=== PATIENT | male | born 1985 | race African-American/Black ===

== ENCOUNTER 2017-12-05 21:44 | Emergency (ER) | payer OTHER ==
[~2017-12-05] VITALS: Ht 170.2 cm; Wt 83.9 kg
[2017-12-05 22:10] VITALS: BP 144/88
--- NOTE | 2017-12-06 01:45 | ED GENERAL ADULT ---
History of Present Illness General Chief Complaint: Upper Respiratory Sx/Fever Stated Complaint: FLU LIKE SYMPTOMS Source: patient Exam Limitations: no limitations Vital Signs & Intake/Output Vital Signs & Intake/Output Vital Signs Date Time Temp Pulse Resp B/P B/P Pulse O2 O2 Flow FiO2 Mean Ox Delivery Rate 12/06 0158 97.6 12/05 2210 97.3 678 16 144/88 99 Room Air ED Intake and Output 12/06 0000 12/05 1200 Intake Total Output Total Balance Patient 185 lb Weight Weight Reported by Patient Measurement Method Allergies Coded Allergies: No Known Allergies (12/05/17) Reconcile Medications Ibuprofen 800 MG TABLET 1 TAB PO TID PRN INFLUENZA Oseltamivir Phosphate (Tamiflu) 75 MG CAPSULE 1 CAP PO BID INFLUENZA Triage Note: PT PRESENTS TO THE ER C/O BODY ACHES, COUGHING YELLOW STUFF UP, TIRED AND FATIGUE AND PT STATES HE HAS A FEVER.. PT DENIES FLU SHOT THIS SEASON. PT STATES HE SELF MEDICATED WITH TYLENOL 2 TABS AT 1800. Triage Nurses Notes Reviewed? yes Onset: Gradual Duration: day(s): Timing: recent history Injury Environment: home Severity: moderate Modifying Factors: Improves With: rest. Associated Symptoms: cough HPI: 32 yo gentleman in prior good health presents with body aches, headache, mild dry cough for the past 3 days. "I just don't feel well... all achy all over." he notes no dyspnea, phlegm, diarrhea, wheezing, chest pain, dizziness. He is otherwise well. Past History Travel History Traveled to [place] past 21 day No Medical History Any Pertinent Medical History? see below for history Surgical History Surgical History: none Psychosocial History What is your primary language Citizen [place] Tobacco Use: Never used Family History Hx Contributory? No Review of Systems Review of Systems Constitutional: Reports: no symptoms. EENTM: Reports: no symptoms. Respiratory: Reports: no symptoms. Cardiovascular: Reports: no symptoms. GI: Reports: no symptoms. Genitourinary: Reports: no symptoms. Musculoskeletal: Reports: no symptoms. Skin: Reports: no symptoms. Neurological/Psychological: Reports: no symptoms. Hematologic/Endocrine: Reports: no symptoms. Immunologic/Allergic: Reports: no symptoms. All Other Systems: Reviewed and Negative Physical Exam Physical Exam General Appearance: well developed/nourished, mild distress Head: atraumatic, normal appearance Eyes: Bilateral: normal appearance. Ears, Nose, Throat: normal pharynx, normal ENT inspection Neck: normal inspection, supple, full range of motion Respiratory: normal breath sounds, chest non-tender, no respiratory distress, quiet respiration, lungs clear Cardiovascular: regular rate/rhythm Gastrointestinal: normal bowel sounds, soft, non-tender, no organomegaly Back: normal inspection Extremities: normal inspection, normal capillary refill, normal range of motion, no edema Neurologic/Psych: no motor/sensory deficits, awake, alert, oriented x 3 Skin: intact, normal color, warm/dry Core Measures ACS in differential dx? No CVA/TIA Diagnosis: No Sepsis Present: No Sepsis Focused Exam Completed? No Progress Differential Diagnoses I considered the following diagnoses in my evaluation of the patient: influenza vs viral syndrome vs other. Plan of Care: Orders Procedure Date/time Status RAPID VIRAL INFLUENZA A 12/05 2149 Complete Microbiology 12/06 0105 NASOPHARYN: Influenza Virus A & B Rapid Smear - COMP INFLUENZA TYPE A Initial ED EKG: none Departure Departure Disposition: HOME OR SELF CARE Condition: Stable Clinical Impression Primary Impression: Influenza Referrals: Unknown (PCP/Family) Departure Forms: Customer Survey General Discharge Information Prescriptions: Current Visit Scripts Oseltamivir Phosphate (Tamiflu) 1 CAP PO BID #10 CAP Ibuprofen 1 TAB PO TID PRN INFLUENZA #30 TAB Comments prescribed tamiflu... close follow up encouraged. Critical Care Note Critical Care Note Critical Care Time: non-applicable
[2017-12-06] MEDS ORDERED: TAMIFLU75 M1 PO (01:46)
[2017-12-06] MEDS ORDERED: IBUPROFEN800 M1 PO (01:46)
== END 2017-12-06 02:01 ==
LOC: ERH 21:44
DX: J11.1 Influenza due to unidentified influenza virus with other respiratory manifestations (principal)
CPT/HCPCS: 87804; 87804-59